=== PATIENT | male | born 1980 | race Caucasian/White ===

== ENCOUNTER 2019-09-08 17:34 | Emergency (ER) | payer OTHER ==
[~2019-09-08] VITALS: Ht 165.1 cm; Wt 81.7 kg
[~2019-09-08 17:34] MED LIST: BACTRIM DS TAB1 EACH PO; CHANTIX1 MG PO; LYRICA 75 MG CA75 MG PO; NOHOMEMEDICATIONS; NORCO 5-325 TA1 EACH PO; ULTRAM 50MG TAB50 MG PO; ZPAK PO
[2019-09-08] MEDS ORDERED: PAXIL20 MG PO (17:52)
[2019-09-08] MEDS ORDERED: ZYPREXA2.5 MG PO (17:52)
[2019-09-08 18:43] LABS: INFLUENZA A ANTIGEN Negative (Negative); INFLUENZA B ANTIGEN Negative (Negative)
[2019-09-08 18:55] LABS: ABSOLUTE BASOPHILS 0.1 thou/uL (0.0-0.2); ABSOLUTE EOSINOPHILS 0.2 thou/uL (0.0-0.7); ABSOLUTE LYMPHOCYTES 1.6 thou/uL (0.8-5.3); ABSOLUTE MONOCYTES 1.7 thou/uL (0.0-1.2); ABSOLUTE NEUTROPHILS 11.7 thou/uL (1.6-8.1); BASOPHILS 0.8 %; EOSINOPHILS 1.3 %; HEMOGLOBIN 16.7 gm/dL (14.0-18.0); LYMPHOCYTES 10.6 %; MCH 32.5 pg (26.0-34.0); MCHC 35.6 g/dL (28.0-37.0); MCV 91.3 fL (80.0-100.0); MONOCYTES 11.1 %; MPV 7.5 fl. (7.2-11.1); NUCLEATED RBCS 0 /100WBC; PLATELET COUNT* 293 thou/uL (150-400); POLYS 76.2 %; RBC 5.15 mil/uL (4.50-6.00); RDW-CV 14.5 % (10.5-14.5); WBC 15.3 thou/uL (4.0-11.0)
[2019-09-08 19:02] LABS: CALCIUM 8.9 mg/dL (8.5-10.1); CREATININE 1.3 mg/dL (0.6-1.3); POTASSIUM 3.7 mmol/L (3.5-5.1)
[2019-09-08] MEDS ORDERED: AUGMENTIN 875-1 EACH PO (19:24)
[2019-09-08] MEDS ORDERED: PREDNISONE 20 M20 MG PO (19:24)
[2019-09-08 19:49] VITALS: BP 126/92
== END 2019-09-08 19:49 | disposition home or self-care (01) ==
LOC: M.ERS 17:34
PROVIDERS: Nurse Practitioner Family
DX: J03.90 Acute tonsillitis, unspecified (principal); G43.009 Migraine without aura, not intractable, without status migrainosus; F17.200 Nicotine dependence, unspecified, uncomplicated